=== PATIENT | female | born 1950 | race Caucasian/White ===

== ENCOUNTER 2016-11-05 20:40 | Emergency (ER) | payer MEDICARE ==
--- NOTE | 2016-11-05 22:40 | REPUSA ---
CT of the head Clinical history: Headache. Trauma. Technique: Multiple axial CT images were obtained through the head without administration of contrast . Findings: The ventricles and sulci are symmetric bilaterally. There is no evidence of acute hemorrhag e or infarct. There is no midline shift, mass effect, or extra-axial fluid collection. The osseous st ructures are unremarkable. There is a small air fluid level in the left maxillary sinus. The other vi sualized paranasal sinuses and mastoid air cells are clear. Impression: No acute intracranial hemorrhage or infarct. Small air fluid level in the left maxillary sinus.
--- NOTE | 2016-11-05 22:50 | REPUSA ---
CT of the cervical spine Clinical history: Pain. Trauma. Technique: Multiple axial CT images were obtained through the cervical spine without administration o f contrast. Coronal and sagittal 3-D reconstructed images were also obtained. Comparison: None. Findings: The cervical vertebral bodies are in satisfactory position. However, there is a 3 mm anterior spondyl olisthesis of C4 upon C5. No fractures or dislocations are demonstrated. The odontoid process is inta ct. Intervertebral disc spaces are moderately narrowed at C5/C6 and C/C7. Disc osteophyte complexes a nd disc bulges are noted at these levels. This results in borderline central canal stenosis measuring approximate 9 mm in AP diameter at each of these levels. There is also moderate bilateral neural for aminal narrowing. Moderate facet arthropathy with sclerosis and osteophytes are seen bilaterally. The re is no evidence of facet subluxation. The cervical cranial junction is intact. The surrounding soft tissues are within normal limits. Impression: 1. No acute fracture. 2. Moderately severe degenerative disc disease with disc osteophyte complexes and disc bulges at C5/C 6 and C6/C7. This results in borderline central canal stenosis and moderate bilateral neural foramina l narrowing at these levels. 3. Grade 1 anterior spondylolisthesis of C4 upon C5.
[2016-11-05] MEDS ORDERED: ADACEL/BOOSTRIX VACCINE (DIPHTH/PERTUSS/ACELL/TETANUS)0.5ML SYR (90715) As Ordered ONE (23:25)
--- NOTE | 2016-11-05 23:34 | EDDOCDS ---
Physician Documentation [facility] Name: Evy Robertson Age: 66 yrs Sex: Female : 1950 Arrival Date: 11/05/2016 Time: 20:40 Bed 9 Private MD: Christian Gutierrez M.D. Disposition: 11/05/16 23:15 Discharged to Home/Self Care. Impression: Laceration without foreign body of scalp. - Condition is Stable. - Medication Reconciliation, Local Pharmacy Hours form. - Follow up: Chritsian Gutierrez; When: 1 week; Reason: Staple/Suture removal. - Problem is new. - Symptoms have improved. Historical: - Allergies: PENICILLINS; - Home Meds: 1. levothyroxine 75 mcg Oral cap 1 cap once daily 2. simvastatin 80 mg Oral tab daily 3. fenofibrate 160 mg oral tab 1 tab once daily 4. Sertraline 50 mg daily 5. Vitamin B-12 1,000 mcg Oral tab daily 6. Stool Softener 100 mg oral cap 1 cap once daily 7. Vitamin C 1,000 mg Oral tab daily 8. Calcium + Vitamin D 600 mg calcium- 200 unit Oral tab daily 9. multivitamin Oral tab daily 10. Fish Oil 1,000 mg Oral cap daily - PMHx: Hypercholesterolemia; Hypothyroidism; - PSHx: hand surgery; knee surgery; ectopic ; Carpal Tunnel Repair- Right; - Social history: Smoking status: Patient states was never smoker of tobacco. No barriers to communication noted, The patient speaks fluent Kazakh. - Family history: Not pertinent. - : The pt / caregiver states he / she is not on anticoagulants. Home medication list is obtained from the patient. - Exposure Risk Screening:: None identified. Vital Signs: 11/05 20:42 BP 166 / 102; Pulse 99; Resp 18 S; Temp 98.3(O); Pulse Ox 99% on R/A; Weight 68.04 kg / gr2 150 lbs (R); Height 5 ft. 4 in. (162.56 cm) (R); Pain 3/10; 23:18 BP 132 / 76; Pulse 74; Resp 18; Temp 98.1(TE); Pulse Ox 98% on R/A; Pain 1/10; floyd 20:42 Body Mass Index 25.75 (68.04 kg, 162.56 cm) gr2 Procedures: 22:15 Laceration repair:. cs11 Laceration: 22:15 Wound Repair of 1.0cm ( 0.4in ) full thickness laceration to scalp. Distal cs11 neuro/vascular/tendon intact. Anesthesia: Local anesthetic administered with 2.0 mls of 1% lidocaine w/ Epi. Wound prep: Moderate cleansing with betadine by provider. Skin closed with 2 thin layer Prolene using Staple gun. Patient tolerated well. MDM: 21:54 CT Head Without Contrast Ordered. EDMS 21:55 CT Spine,Cervical W/o Contrast Ordered. EDMS 22:30 Financial registration complete. gb 22:42 [facility] Payment Agreement was scanned into [employer] and attached to record. gb 23:13 Tetanus- Diptheria-Acellular Pertussis 0.5 ml IM once; Routine booster 10-64yrs, >64 cs11 with child contact [employer] ordered. Administered Medications: 23:32 Drug: Tetanus- Diptheria-Acellular Pertussis 0.5 ml [diphth,pertussis(acel),tetanus 2.5 ko2 Lf unit-8 mcg-5 Lf/0.5mL IM syringe (0.5 mL)] {Home Health Aid: [employer]. Exp: 12/22/2018. Lot #: [id number]. } Route: IM; Site: right deltoid; Signatures: Dispatcher [employer] Tea Fernando RN RN mcp Barnhardt, Gloria, Reg Reg Devonte Gar, DO DO cs11 Keara Eagle RN RN ko2 The chart was reviewed and I authenticate all verbal orders and agree with the evaluation and treatment provided.Attachments: 22:42 [facility] Payment Agreement gb MTDD
--- NOTE | 2016-11-05 23:34 | EDDOCDS ---
Nurse's Notes [facility] Name: Evy Robertson Age: 66 yrs Sex: Female : 1950 Arrival Date: 11/05/2016 Time: 20:40 Bed 9 Private MD: Christian Gutierrez M.D. Diagnosis: Laceration without foreign body of scalp Presentation: 11/05 20:44 Presenting complaint: Patient states: Slipped and fell hitting back of head. Denies mcp being on any blood thinners. Adult Sepsis Screening: The patient does not have new or worsening altered mentation. Patient's respiratory rate is less than 22. Systolic blood pressure is greater than 100. Patient has a qSOFA score of 0- Negative Sepsis Screen. Suicide/Homicide risk assessment- the patient denies having any suicidal and/or homicidal ideations and does not present with any other emotional, behavioral or mental health complaints. Status: Patient is not a it service continuity supervisor or dependent. Transition of care: patient was not received from another setting of care. 20:44 Acuity: [facility] Level [facility] 20:44 Method Of Arrival: Walkin/Carried/[facility] Triage Assessment: 20:48 General: Appears uncomfortable, Behavior is cooperative. Pain: Location: back of head [facility] Pain currently is 4 out of 10 on a pain scale. Neurological: Level of Consciousness is awake, alert, Oriented to person, place, time, Moves all extremities. Gait is steady, Speech is normal. Respiratory: Airway is patent Respiratory effort is even, unlabored. Derm: Skin is pink, warm & dry. Musculoskeletal: Circulation, motion, and sensation intact. Injury Description: Laceration sustained to back of head is clean, 0.5 to 2.5 cm long, bleeding moderately. Historical: - Allergies: PENICILLINS; - Home Meds: 1. levothyroxine 75 mcg Oral cap 1 cap once daily 2. simvastatin 80 mg Oral tab daily 3. fenofibrate 160 mg oral tab 1 tab once daily 4. Sertraline 50 mg daily 5. Vitamin B-12 1,000 mcg Oral tab daily 6. Stool Softener 100 mg oral cap 1 cap once daily 7. Vitamin C 1,000 mg Oral tab daily 8. Calcium + Vitamin D 600 mg calcium- 200 unit Oral tab daily 9. multivitamin Oral tab daily 10. Fish Oil 1,000 mg Oral cap daily - PMHx: Hypercholesterolemia; Hypothyroidism; - PSHx: hand surgery; knee surgery; ectopic ; Carpal Tunnel Repair- Right; - Social history: Smoking status: Patient states was never smoker of tobacco. No barriers to communication noted, The patient speaks fluent Turkish. - Family history: Not pertinent. - : The pt / caregiver states he / she is not on anticoagulants. Home medication list is obtained from the patient. - Exposure Risk Screening:: None identified. Screenin:17 Screening information is obtained from the patient. Fall risk: No risks identified. ko2 Assistance ADL's: requires no assistance with activities of daily living. Abuse/DV Screen: The patient / caregiver reports he/she is: There is an injury present, The injury is consistent with the stated history. Nutritional screening: No deficits noted. Advance Directives: Currently, there is no health care proxy. There is no active DNR order. There is no living will. There is no Power of Copyright Clerk. home support is adequate. Assessment: 22:00 General: Appears in no apparent distress, Behavior is appropriate for age, cooperative. ko2 Pain: Location: back of head Pain currently is 4 out of 10 on a pain scale. Neurological: Level of Consciousness is awake, alert. Respiratory: Airway is patent Respiratory effort is even, unlabored. Derm: laceration to back of head. bleeding slightly. 22:00 Musculoskeletal: Range of motion intact in all extremities. ko2 23:00 General: Appears in no apparent distress, Behavior is appropriate for age, cooperative. ko2 Pain: Location: back of head. Neurological: Level of Consciousness is awake, alert. Respiratory: Airway is patent Respiratory effort is even, unlabored. Derm: Bleeding stopped. [place] in place. Vital Signs: 20:42 BP 166 / 102; Pulse 99; Resp 18 S; Temp 98.3(O); Pulse Ox 99% on R/A; Weight 68.04 kg gr2 (R); Height 5 ft. 4 in. (162.56 cm) (R); Pain 3/10; 23:18 BP 132 / 76; Pulse 74; Resp 18; Temp 98.1(TE); Pulse Ox 98% on R/A; Pain 1/10; floyd 20:42 Body Mass Index 25.75 (68.04 kg, 162.56 cm) gr2 Vitals: 20:42 Log In Time: November 05, 2016 at 20:42. gr2 ED Course: 20:42 Patient visited by Edel Sanchez. gr2 20:42 Christian Gutierrez is Private Physician. gr2 20:42 Patient moved to Waiting gr2 20:43 Patient visited by Edel Sanchez. gr2 20:43 Patient moved to Pre RCE gr2 20:45 Triage Initiated mcp 20:51 Patient visited by Tea Delgadillo RN. mcp 21:51 Keara Eagle RN is Primary Nurse. cz 21:51 Patient moved to 9 cz 21:52 Devonte Elizabeth DO is Attending Physician. cs11 21:52 Patient visited by Devonte Elizabeth DO. cs11 22:18 The patient / caregiver is instructed regarding the plan of care and ED course. ko2 22:42 [facility] Payment Agreement was scanned into [employer] and attached to record. gb 22:47 Patient visited by Keara Eagle RN. ko2 22:59 CT Head Without Contrast Returned. EDMS 22:59 CT Spine,Cervical W/o Contrast Returned. EDMS 23:14 Christian Gutierrez is Referral Physician. cs11 23:18 Patient visited by Emily Torrez PCA. floyd 23:33 No IV's were initiated during this patient's visit. No procedures done that require ko2 assistance. Administered Medications: 23:32 Drug: Tetanus- Diptheria-Acellular Pertussis 0.5 ml [diphth,pertussis(acel),tetanus 2.5 ko2 Lf unit-8 mcg-5 Lf/0.5mL IM syringe (0.5 mL)] {Director Employee Communications: [employer]. Exp: 12/22/2018. Lot #: [id number]. } Route: IM; Site: right deltoid; Order Results: Radiology Order: CT Head Without Contrast Test: CT Head Without Contrast REASON FOR EXAMINATION: Trauma; ; CT of the head; Clinical history: Headache. Trauma.; Technique: Multiple axial CT images were obtained through the head without administration of contrast; .; Findings: The ventricles and sulci are symmetric bilaterally. There is no evidence of acute hemorrhag; e or infarct. There is no midline shift, mass effect, or extra-axial fluid collection. The osseous st; ructures are unremarkable. There is a small air fluid level in the left maxillary sinus. The other vi; sualized paranasal sinuses and mastoid air cells are clear.; Impression: No acute intracranial hemorrhage or infarct. Small air fluid level in the left maxillary; sinus.; ; Radiology Order: CT Spine,Cervical W/o Contrast Test: CT Spine,Cervical W/o Contrast REASON FOR EXAMINATION: Trauma; ; CT of the cervical spine; Clinical history: Pain. Trauma.; Technique: Multiple axial CT images were obtained through the cervical spine without administration o; f contrast. Coronal and sagittal 3-D reconstructed images were also obtained.; Comparison: None.; Findings:; The cervical vertebral bodies are in satisfactory position. However, there is a 3 mm anterior spondyl; olisthesis of C4 upon C5. No fractures or dislocations are demonstrated. The odontoid process is inta; ct. Intervertebral disc spaces are moderately narrowed at C5/C6 and C/C7. Disc osteophyte complexes a; nd disc bulges are noted at these levels. This results in borderline central canal stenosis measuring; approximate 9 mm in AP diameter at each of these levels. There is also moderate bilateral neural for; aminal narrowing. Moderate facet arthropathy with sclerosis and osteophytes are seen bilaterally. The; re is no evidence of facet subluxation. The cervical cranial junction is intact. The surrounding soft; tissues are within normal limits.; Impression:; 1. No acute fracture.; 2. Moderately severe degenerative disc disease with disc osteophyte complexes and disc bulges at C5/C; 6 and C6/C7. This results in borderline central canal stenosis and moderate bilateral neural foramina; l narrowing at these levels.; 3. Grade 1 anterior spondylolisthesis of C4 upon C5.; ; Outcome: 23:15 Discharge ordered by Provider. cs11 23:33 Discharge Assessment: Patient awake, alert and oriented x 3. No cognitive and/or ko2 functional deficits noted. Patient verbalized understanding of disposition instructions. patient administered narcotics - no. The following High Risk Discharge criteria are identified: None. Condition: stable. Discharge instructions given to patient, Instructed on discharge instructions, follow up and referral plans. Demonstrated understanding of instructions, Pt was receptive of discharge instructions/ teaching. CT Study completed. Property sent home with patient. 23:33 Patient left the ED. ko2 Signatures: Dispatcher [employer] Tea Fernando, RN RN Alcon Puentes RN RN cz Barnhardt, Gloria, Reg Reg gb Emily Torrez, [employer]ACINTA COMMERCIAL DIVER Devonte Tran, DO cs11 Edel Sanchez gr2 Keara EagleRN RN ko2 MTDD
--- NOTE | 2016-11-08 00:34 | EDDOCDS ---
Physician Documentation [facility] Name: Evy Robertson Age: 66 yrs Sex: Female : 1950 Arrival Date: 11/05/2016 Time: 20:40 Bed 9 Private MD: Christian Gutierrez M.D. Disposition: 11/05/16 23:15 Discharged to Home/Self Care. Impression: Laceration without foreign body of scalp. - Condition is Stable. - Medication Reconciliation, Local Pharmacy Hours form. - Follow up: Christian Gutierrez; When: 1 week; Reason: Staple/Suture removal. - Problem is new. - Symptoms have improved. Historical: - Allergies: PENICILLINS; - Home Meds: 1. levothyroxine 75 mcg Oral cap 1 cap once daily 2. simvastatin 80 mg Oral tab daily 3. fenofibrate 160 mg oral tab 1 tab once daily 4. Sertraline 50 mg daily 5. Vitamin B-12 1,000 mcg Oral tab daily 6. Stool Softener 100 mg oral cap 1 cap once daily 7. Vitamin C 1,000 mg Oral tab daily 8. Calcium + Vitamin D 600 mg calcium- 200 unit Oral tab daily 9. multivitamin Oral tab daily 10. Fish Oil 1,000 mg Oral cap daily - PMHx: Hypercholesterolemia; Hypothyroidism; - PSHx: hand surgery; knee surgery; ectopic ; Carpal Tunnel Repair- Right; - Social history: Smoking status: Patient states was never smoker of tobacco. No barriers to communication noted, The patient speaks fluent Pashto. - Family history: Not pertinent. - : The pt / caregiver states he / she is not on anticoagulants. Home medication list is obtained from the patient. - Exposure Risk Screening:: None identified. Vital Signs: 11/05 20:42 BP 166 / 102; Pulse 99; Resp 18 S; Temp 98.3(O); Pulse Ox 99% on R/A; Weight 68.04 kg / gr2 150 lbs (R); Height 5 ft. 4 in. (162.56 cm) (R); Pain 3/10; 23:18 BP 132 / 76; Pulse 74; Resp 18; Temp 98.1(TE); Pulse Ox 98% on R/A; Pain 1/10; floyd 20:42 Body Mass Index 25.75 (68.04 kg, 162.56 cm) gr2 Procedures: 22:15 Laceration repair:. cs11 Laceration: 22:15 Wound Repair of 1.0cm ( 0.4in ) full thickness laceration to scalp. Distal cs11 neuro/vascular/tendon intact. Anesthesia: Local anesthetic administered with 2.0 mls of 1% lidocaine w/ Epi. Wound prep: Moderate cleansing with betadine by provider. Skin closed with 2 thin layer Prolene using Staple gun. Patient tolerated well. MDM: 21:54 CT Head Without Contrast Ordered. EDMS 21:55 CT Spine,Cervical W/o Contrast Ordered. EDMS 22:30 Financial registration complete. gb 22:42 [facility] Payment Agreement was scanned into [employer] and attached to record. gb 23:13 Tetanus- Diptheria-Acellular Pertussis 0.5 ml IM once; Routine booster 10-64yrs, >64 cs11 with child contact [employer] ordered. 11/06 12:35 T-Sheet-- Draft Copy was scanned into [employer] and attached to record. gb Administered Medications: 11/05 23:32 Drug: Tetanus- Diptheria-Acellular Pertussis 0.5 ml [diphth,pertussis(acel),tetanus 2.5 ko2 Lf unit-8 mcg-5 Lf/0.5mL IM syringe (0.5 mL)] {Supervisor Paste Mixing: [employer]. Exp: 12/22/2018. Lot #: [id number]. } Route: IM; Site: right deltoid; Signatures: Dispatcher [employer] Tea Fernando RN RN mcp Barnhardt, Gloria, Reg Reg Devonte Elizabeth DO DO cs11 Keara Eagle RN RN ko2 The chart was reviewed and I authenticate all verbal orders and agree with the evaluation and treatment provided.Attachments: 22:42 [facility] Payment Agreement gb 11/06 12:35 T-Sheet-- Draft Copy gb Chart Complete MTDD
--- NOTE | 2016-11-08 00:34 | EDDOCDS ---
Physician Documentation [facility] [place] Name: Evy Robertson Age: 66 yrs Sex: Female : 1950 Arrival Date: 11/05/2016 Time: 20:40 Bed 9 Private MD: Christian Gutierrez M.D. Disposition: 11/05/16 23:15 Discharged to Home/Self Care. Impression: Laceration without foreign body of scalp. - Condition is Stable. - Medication Reconciliation, Local Pharmacy Hours form. - Follow up: Christian Gutierrez; When: 1 week; Reason: Staple/Suture removal. - Problem is new. - Symptoms have improved. Historical: - Allergies: PENICILLINS; - Home Meds: 1. levothyroxine 75 mcg Oral cap 1 cap once daily 2. simvastatin 80 mg Oral tab daily 3. fenofibrate 160 mg oral tab 1 tab once daily 4. Sertraline 50 mg daily 5. Vitamin B-12 1,000 mcg Oral tab daily 6. Stool Softener 100 mg oral cap 1 cap once daily 7. Vitamin C 1,000 mg Oral tab daily 8. Calcium + Vitamin D 600 mg calcium- 200 unit Oral tab daily 9. multivitamin Oral tab daily 10. Fish Oil 1,000 mg Oral cap daily - PMHx: Hypercholesterolemia; Hypothyroidism; - PSHx: hand surgery; knee surgery; ectopic ; Carpal Tunnel Repair- Right; - Social history: Smoking status: Patient states was never smoker of tobacco. No barriers to communication noted, The patient speaks fluent Polish. - Family history: Not pertinent. - : The pt / caregiver states he / she is not on anticoagulants. Home medication list is obtained from the patient. - Exposure Risk Screening:: None identified. Vital Signs: 11/05 20:42 BP 166 / 102; Pulse 99; Resp 18 S; Temp 98.3(O); Pulse Ox 99% on R/A; Weight 68.04 kg / gr2 150 lbs (R); Height 5 ft. 4 in. (162.56 cm) (R); Pain 3/10; 23:18 BP 132 / 76; Pulse 74; Resp 18; Temp 98.1(TE); Pulse Ox 98% on R/A; Pain 1/10; floyd 20:42 Body Mass Index 25.75 (68.04 kg, 162.56 cm) gr2 Procedures: 22:15 Laceration repair:. cs11 Laceration: 22:15 Wound Repair of 1.0cm ( 0.4in ) full thickness laceration to scalp. Distal cs11 neuro/vascular/tendon intact. Anesthesia: Local anesthetic administered with 2.0 mls of 1% lidocaine w/ Epi. Wound prep: Moderate cleansing with betadine by provider. Skin closed with 2 thin layer Prolene using Staple gun. Patient tolerated well. MDM: 21:54 CT Head Without Contrast Ordered. EDMS 21:55 CT Spine,Cervical W/o Contrast Ordered. EDMS 22:30 Financial registration complete. gb 22:42 [facility] Payment Agreement was scanned into [employer] and attached to record. gb 23:13 Tetanus- Diptheria-Acellular Pertussis 0.5 ml IM once; Routine booster 10-64yrs, >64 cs11 with child contact [employer] ordered. 11/06 12:35 T-Sheet-- Draft Copy was scanned into [employer] and attached to record. gb Administered Medications: 11/05 23:32 Drug: Tetanus- Diptheria-Acellular Pertussis 0.5 ml [diphth,pertussis(acel),tetanus 2.5 ko2 Lf unit-8 mcg-5 Lf/0.5mL IM syringe (0.5 mL)] {Wink Cutter Operator: [employer]. Exp: 12/22/2018. Lot #: [id number]. } Route: IM; Site: right deltoid; Signatures: Dispatcher [employer] Tea Fernando RN RN mcp Barnhardt, Gloria, Reg Reg Devonte Elizabeth DO DO cs11 Keara Eagle RN RN ko2 The chart was reviewed and I authenticate all verbal orders and agree with the evaluation and treatment provided.Attachments: 22:42 [facility] Payment Agreement gb 11/06 12:35 T-Sheet-- Draft Copy gb Chart Complete MTDD
--- NOTE | 2016-11-08 00:34 | EDDOCDS ---
[facility] Name: Evy Robertson Age: 66 yrs Sex: Female : 1950 Arrival Date: 11/05/2016 Time: 20:40 Bed 9 Private MD: Christian Gutierrez M.D. Diagnosis: Laceration without foreign body of scalp Presentation: 11/05 20:44 Presenting complaint: Patient states: Slipped and fell hitting back of head. Denies mcp being on any blood thinners. Adult Sepsis Screening: The patient does not have new or worsening altered mentation. Patient's respiratory rate is less than 22. Systolic blood pressure is greater than 100. Patient has a qSOFA score of 0- Negative Sepsis Screen. Suicide/Homicide risk assessment- the patient denies having any suicidal and/or homicidal ideations and does not present with any other emotional, behavioral or mental health complaints. Status: Patient is not a manager of environmental services or dependent. Transition of care: patient was not received from another setting of care. 20:44 Acuity: WINNIE Level 4 [facility] 20:44 Method Of Arrival: Walkin/Carried/Asstd [facility] Triage Assessment: 20:48 General: Appears uncomfortable, Behavior is cooperative. Pain: Location: back of head [facility] Pain currently is 4 out of 10 on a pain scale. Neurological: Level of Consciousness is awake, alert, Oriented to person, place, time, Moves all extremities. Gait is steady, Speech is normal. Respiratory: Airway is patent Respiratory effort is even, unlabored. Derm: Skin is pink, warm & dry. Musculoskeletal: Circulation, motion, and sensation intact. Injury Description: Laceration sustained to back of head is clean, 0.5 to 2.5 cm long, bleeding moderately. Historical: - Allergies: PENICILLINS; - Home Meds: 1. levothyroxine 75 mcg Oral cap 1 cap once daily 2. simvastatin 80 mg Oral tab daily 3. fenofibrate 160 mg oral tab 1 tab once daily 4. Sertraline 50 mg daily 5. Vitamin B-12 1,000 mcg Oral tab daily 6. Stool Softener 100 mg oral cap 1 cap once daily 7. Vitamin C 1,000 mg Oral tab daily 8. Calcium + Vitamin D 600 mg calcium- 200 unit Oral tab daily 9. multivitamin Oral tab daily 10. Fish Oil 1,000 mg Oral cap daily - PMHx: Hypercholesterolemia; Hypothyroidism; - PSHx: hand surgery; knee surgery; ectopic ; Carpal Tunnel Repair- Right; - Social history: Smoking status: Patient states was never smoker of tobacco. No barriers to communication noted, The patient speaks fluent Indonesian. - Family history: Not pertinent. - : The pt / caregiver states he / she is not on anticoagulants. Home medication list is obtained from the patient. - Exposure Risk Screening:: None identified. Screenin:17 Screening information is obtained from the patient. Fall risk: No risks identified. ko2 Assistance ADL's: requires no assistance with activities of daily living. Abuse/DV Screen: The patient / caregiver reports he/she is: There is an injury present, The injury is consistent with the stated history. Nutritional screening: No deficits noted. Advance Directives: Currently, there is no health care proxy. There is no active DNR order. There is no living will. There is no Power of Sound Effects Technician. home support is adequate. Assessment: 22:00 General: Appears in no apparent distress, Behavior is appropriate for age, cooperative. ko2 Pain: Location: back of head Pain currently is 4 out of 10 on a pain scale. Neurological: Level of Consciousness is awake, alert. Respiratory: Airway is patent Respiratory effort is even, unlabored. Derm: laceration to back of head. bleeding slightly. 22:00 Musculoskeletal: Range of motion intact in all extremities. ko2 23:00 General: Appears in no apparent distress, Behavior is appropriate for age, cooperative. ko2 Pain: Location: back of head. Neurological: Level of Consciousness is awake, alert. Respiratory: Airway is patent Respiratory effort is even, unlabored. Derm: Bleeding stopped. [place] in place. Vital Signs: 20:42 BP 166 / 102; Pulse 99; Resp 18 S; Temp 98.3(O); Pulse Ox 99% on R/A; Weight 68.04 kg gr2 (R); Height 5 ft. 4 in. (162.56 cm) (R); Pain 3/10; 23:18 BP 132 / 76; Pulse 74; Resp 18; Temp 98.1(TE); Pulse Ox 98% on R/A; Pain 1/10; floyd 20:42 Body Mass Index 25.75 (68.04 kg, 162.56 cm) gr2 Vitals: 20:42 Log In Time: November 05, 2016 at 20:42. gr2 ED Course: 20:42 Patient visited by Edel Sanchez. gr2 20:42 Christian Gutierrez is Private Physician. gr2 20:42 Patient moved to Waiting gr2 20:43 Patient visited by Edel Sanchez. gr2 20:43 Patient moved to Pre RCE gr2 20:45 Triage Initiated mcp 20:51 Patient visited by Tea Delgadillo RN. mcp 21:51 Keara Eagle,NAGI is Primary Nurse. cz 21:51 Patient moved to 9 cz 21:52 Devonte Elizabeth DO is Attending Physician. cs11 21:52 Patient visited by Devonte Elizabeth DO. cs11 22:18 The patient / caregiver is instructed regarding the plan of care and ED course. ko2 22:42 [facility] Payment Agreement was scanned into [employer] and attached to record. gb 22:47 Patient visited by Keara Eagle RN. ko2 22:59 CT Head Without Contrast Returned. EDMS 22:59 CT Spine,Cervical W/o Contrast Returned. EDMS 23:14 Christian Gutierrez is Referral Physician. cs11 23:18 Patient visited by Emily Torrez PCA. floyd 23:33 No IV's were initiated during this patient's visit. No procedures done that require ko2 assistance. 11/06 12:35 T-Sheet-- Draft Copy was scanned into [employer] and attached to record. gb Administered Medications: 11/05 23:32 Drug: Tetanus- Diptheria-Acellular Pertussis 0.5 ml [diphth,pertussis(acel),tetanus 2.5 ko2 Lf unit-8 mcg-5 Lf/0.5mL IM syringe (0.5 mL)] {Newspaper Delivery Driver: [employer]. Exp: 12/22/2018. Lot #: [id number]. } Route: IM; Site: right deltoid; Order Results: Radiology Order: CT Head Without Contrast Test: CT Head Without Contrast REASON FOR EXAMINATION: Trauma; ; CT of the head; Clinical history: Headache. Trauma.; Technique: Multiple axial CT images were obtained through the head without administration of contrast; .; Findings: The ventricles and sulci are symmetric bilaterally. There is no evidence of acute hemorrhag; e or infarct. There is no midline shift, mass effect, or extra-axial fluid collection. The osseous st; ructures are unremarkable. There is a small air fluid level in the left maxillary sinus. The other vi; sualized paranasal sinuses and mastoid air cells are clear.; Impression: No acute intracranial hemorrhage or infarct. Small air fluid level in the left maxillary; sinus.; ; Radiology Order: CT Spine,Cervical W/o Contrast Test: CT Spine,Cervical W/o Contrast REASON FOR EXAMINATION: Trauma; ; CT of the cervical spine; Clinical history: Pain. Trauma.; Technique: Multiple axial CT images were obtained through the cervical spine without administration o; f contrast. Coronal and sagittal 3-D reconstructed images were also obtained.; Comparison: None.; Findings:; The cervical vertebral bodies are in satisfactory position. However, there is a 3 mm anterior spondyl; olisthesis of C4 upon C5. No fractures or dislocations are demonstrated. The odontoid process is inta; ct. Intervertebral disc spaces are moderately narrowed at C5/C6 and C/C7. Disc osteophyte complexes a; nd disc bulges are noted at these levels. This results in borderline central canal stenosis measuring; approximate 9 mm in AP diameter at each of these levels. There is also moderate bilateral neural for; aminal narrowing. Moderate facet arthropathy with sclerosis and osteophytes are seen bilaterally. The; re is no evidence of facet subluxation. The cervical cranial junction is intact. The surrounding soft; tissues are within normal limits.; Impression:; 1. No acute fracture.; 2. Moderately severe degenerative disc disease with disc osteophyte complexes and disc bulges at C5/C; 6 and C6/C7. This results in borderline central canal stenosis and moderate bilateral neural foramina; l narrowing at these levels.; 3. Grade 1 anterior spondylolisthesis of C4 upon C5.; ; Outcome: 23:15 Discharge ordered by Provider. cs11 23:33 Discharge Assessment: Patient awake, alert and oriented x 3. No cognitive and/or ko2 functional deficits noted. Patient verbalized understanding of disposition instructions. patient administered narcotics - no. The following High Risk Discharge criteria are identified: None. Condition: stable. Discharge instructions given to patient, Instructed on discharge instructions, follow up and referral plans. Demonstrated understanding of instructions, Pt was receptive of discharge instructions/ teaching. CT Study completed. Property sent home with patient. 23:33 Patient left the ED. ko2 Signatures: Dispatcher [employer] EDTea Young, RN RN Alcon Puentes, RN RN Ceci Benjamin, Reg Reg gb Lore, Emily, ECHO VASCULAR TECHNOLOGIST ECHO VASCULAR TECHNOLOGIST Devonte Tran, DO cs11 Edel Sanchez gr2 Keara Eagle RN RN ko2 Chart Complete MTDD
--- NOTE | 2016-11-08 17:49 | EDDOCDS ---
Physician Documentation [facility] Name: Evy Robertson Age: 66 yrs Sex: Female : 1950 Arrival Date: 11/05/2016 Time: 20:40 Bed 9 Private MD: Christian Gutierrez M.D. Disposition: 11/05/16 23:15 Discharged to Home/Self Care. Impression: Laceration without foreign body of scalp. - Condition is Stable. - Medication Reconciliation, Local Pharmacy Hours form. - Follow up: Christian Gutierrez; When: 1 week; Reason: Staple/Suture removal. - Problem is new. - Symptoms have improved. Historical: - Allergies: PENICILLINS; - Home Meds: 1. levothyroxine 75 mcg Oral cap 1 cap once daily 2. simvastatin 80 mg Oral tab daily 3. fenofibrate 160 mg oral tab 1 tab once daily 4. Sertraline 50 mg daily 5. Vitamin B-12 1,000 mcg Oral tab daily 6. Stool Softener 100 mg oral cap 1 cap once daily 7. Vitamin C 1,000 mg Oral tab daily 8. Calcium + Vitamin D 600 mg calcium- 200 unit Oral tab daily 9. multivitamin Oral tab daily 10. Fish Oil 1,000 mg Oral cap daily - PMHx: Hypercholesterolemia; Hypothyroidism; - PSHx: hand surgery; knee surgery; ectopic ; Carpal Tunnel Repair- Right; - Social history: Smoking status: Patient states was never smoker of tobacco. No barriers to communication noted, The patient speaks fluent Malay. - Family history: Not pertinent. - : The pt / caregiver states he / she is not on anticoagulants. Home medication list is obtained from the patient. - Exposure Risk Screening:: None identified. Vital Signs: 11/05 20:42 BP 166 / 102; Pulse 99; Resp 18 S; Temp 98.3(O); Pulse Ox 99% on R/A; Weight 68.04 kg / gr2 150 lbs (R); Height 5 ft. 4 in. (162.56 cm) (R); Pain 3/10; 23:18 BP 132 / 76; Pulse 74; Resp 18; Temp 98.1(TE); Pulse Ox 98% on R/A; Pain 1/10; floyd 20:42 Body Mass Index 25.75 (68.04 kg, 162.56 cm) gr2 Procedures: 22:15 Laceration repair:. cs11 Laceration: 22:15 Wound Repair of 1.0cm ( 0.4in ) full thickness laceration to scalp. Distal cs11 neuro/vascular/tendon intact. Anesthesia: Local anesthetic administered with 2.0 mls of 1% lidocaine w/ Epi. Wound prep: Moderate cleansing with betadine by provider. Skin closed with 2 thin layer Prolene using Staple gun. Patient tolerated well. MDM: 21:54 CT Head Without Contrast Ordered. EDMS 21:55 CT Spine,Cervical W/o Contrast Ordered. EDMS 22:30 Financial registration complete. gb 22:42 [facility] Payment Agreement was scanned into [employer] and attached to record. gb 23:13 Tetanus- Diptheria-Acellular Pertussis 0.5 ml IM once; Routine booster 10-64yrs, >64 cs11 with child contact [place] ordered. 11/06 12:35 T-Sheet-- Draft Copy was scanned into [employer] and attached to record. gb Administered Medications: 11/05 23:32 Drug: Tetanus- Diptheria-Acellular Pertussis 0.5 ml [diphth,pertussis(acel),tetanus 2.5 ko2 Lf unit-8 mcg-5 Lf/0.5mL IM syringe (0.5 mL)] {Band Maker: [employer]. Exp: 12/22/2018. Lot #: [id number]. } Route: IM; Site: right deltoid; Addendum: 11/08/2016 17:48 Radiology Callback: Radiology results faxed to primary care physician/provider. dr prince gutierrez faxed formal repiort of ct c spine for fu mlg. Signatures: Dispatcher [employer] EDDE Rosa Lee MD MD ml Peters, Mary RN RN Ceci Arroyo, Reg Reg Devonte Gar DO DO cs11 Keara Eagle RN RN ko2 The chart was reviewed and I authenticate all verbal orders and agree with the evaluation and treatment provided.Attachments: 11/05 22:42 [facility] Payment Agreement gb 11/06 12:35 T-Sheet-- Draft Copy gb MTDD
--- NOTE | 2016-11-08 17:49 | EDDOCDS ---
Nurse's Notes [facility] Name: Evy Robertson Age: 66 yrs Sex: Female : 1950 Arrival Date: 11/05/2016 Time: 20:40 Bed 9 Private MD: Christian Gutierrez M.D. Diagnosis: Laceration without foreign body of scalp Presentation: 11/05 20:44 Presenting complaint: Patient states: Slipped and fell hitting back of head. Denies mcp being on any blood thinners. Adult Sepsis Screening: The patient does not have new or worsening altered mentation. Patient's respiratory rate is less than 22. Systolic blood pressure is greater than 100. Patient has a qSOFA score of 0- Negative Sepsis Screen. Suicide/Homicide risk assessment- the patient denies having any suicidal and/or homicidal ideations and does not present with any other emotional, behavioral or mental health complaints. Status: Patient is not a secret service agent or dependent. Transition of care: patient was not received from another setting of care. 20:44 Acuity: WINNIE Level 4 [facility] 20:44 Method Of Arrival: Walkin/Carried/Asstd [facility] Triage Assessment: 20:48 General: Appears uncomfortable, Behavior is cooperative. Pain: Location: back of head [facility] Pain currently is 4 out of 10 on a pain scale. Neurological: Level of Consciousness is awake, alert, Oriented to person, place, time, Moves all extremities. Gait is steady, Speech is normal. Respiratory: Airway is patent Respiratory effort is even, unlabored. Derm: Skin is pink, warm & dry. Musculoskeletal: Circulation, motion, and sensation intact. Injury Description: Laceration sustained to back of head is clean, 0.5 to 2.5 cm long, bleeding moderately. Historical: - Allergies: PENICILLINS; - Home Meds: 1. levothyroxine 75 mcg Oral cap 1 cap once daily 2. simvastatin 80 mg Oral tab daily 3. fenofibrate 160 mg oral tab 1 tab once daily 4. Sertraline 50 mg daily 5. Vitamin B-12 1,000 mcg Oral tab daily 6. Stool Softener 100 mg oral cap 1 cap once daily 7. Vitamin C 1,000 mg Oral tab daily 8. Calcium + Vitamin D 600 mg calcium- 200 unit Oral tab daily 9. multivitamin Oral tab daily 10. Fish Oil 1,000 mg Oral cap daily - PMHx: Hypercholesterolemia; Hypothyroidism; - PSHx: hand surgery; knee surgery; ectopic ; Carpal Tunnel Repair- Right; - Social history: Smoking status: Patient states was never smoker of tobacco. No barriers to communication noted, The patient speaks fluent Georgian. - Family history: Not pertinent. - : The pt / caregiver states he / she is not on anticoagulants. Home medication list is obtained from the patient. - Exposure Risk Screening:: None identified. Screenin:17 Screening information is obtained from the patient. Fall risk: No risks identified. ko2 Assistance ADL's: requires no assistance with activities of daily living. Abuse/DV Screen: The patient / caregiver reports he/she is: There is an injury present, The injury is consistent with the stated history. Nutritional screening: No deficits noted. Advance Directives: Currently, there is no health care proxy. There is no active DNR order. There is no living will. There is no Power of Ios Programmer. home support is adequate. Assessment: 22:00 General: Appears in no apparent distress, Behavior is appropriate for age, cooperative. ko2 Pain: Location: back of head Pain currently is 4 out of 10 on a pain scale. Neurological: Level of Consciousness is awake, alert. Respiratory: Airway is patent Respiratory effort is even, unlabored. Derm: laceration to back of head. bleeding slightly. 22:00 Musculoskeletal: Range of motion intact in all extremities. ko2 23:00 General: Appears in no apparent distress, Behavior is appropriate for age, cooperative. ko2 Pain: Location: back of head. Neurological: Level of Consciousness is awake, alert. Respiratory: Airway is patent Respiratory effort is even, unlabored. Derm: Bleeding stopped. [place] in place. Vital Signs: 20:42 BP 166 / 102; Pulse 99; Resp 18 S; Temp 98.3(O); Pulse Ox 99% on R/A; Weight 68.04 kg gr2 (R); Height 5 ft. 4 in. (162.56 cm) (R); Pain 3/10; 23:18 BP 132 / 76; Pulse 74; Resp 18; Temp 98.1(TE); Pulse Ox 98% on R/A; Pain 1/10; floyd 20:42 Body Mass Index 25.75 (68.04 kg, 162.56 cm) gr2 Vitals: 20:42 Log In Time: November 05, 2016 at 20:42. gr2 ED Course: 20:42 Patient visited by Edel Sanchez. gr2 20:42 Christian Gutierrez is Private Physician. gr2 20:42 Patient moved to Waiting gr2 20:43 Patient visited by Edel Sanchez. gr2 20:43 Patient moved to Pre RCE gr2 20:45 Triage Initiated mcp 20:51 Patient visited by Tea Delgadillo RN. mcp 21:51 Keara Eagle,NAGI is Primary Nurse. cz 21:51 Patient moved to 9 cz 21:52 Devonte Elizabeth DO is Attending Physician. cs11 21:52 Patient visited by Devonte Elizabeth DO. cs11 22:18 The patient / caregiver is instructed regarding the plan of care and ED course. ko2 22:42 [facility] Payment Agreement was scanned into [employer] and attached to record. gb 22:47 Patient visited by Keara Eagle RN. ko2 22:59 CT Head Without Contrast Returned. EDMS 22:59 CT Spine,Cervical W/o Contrast Returned. EDMS 23:14 Christian Gutierrez is Referral Physician. cs11 23:18 Patient visited by Emily Torrez PCA. floyd 23:33 No IV's were initiated during this patient's visit. No procedures done that require ko2 assistance. 11/06 12:35 T-Sheet-- Draft Copy was scanned into [employer] and attached to record. gb Administered Medications: 11/05 23:32 Drug: Tetanus- Diptheria-Acellular Pertussis 0.5 ml [diphth,pertussis(acel),tetanus 2.5 ko2 Lf unit-8 mcg-5 Lf/0.5mL IM syringe (0.5 mL)] {Library Consultant: [email or web address]. Exp: 12/22/2018. Lot #: [id number]. } Route: IM; Site: right deltoid; Order Results: Radiology Order: CT Head Without Contrast Test: CT Head Without Contrast REASON FOR EXAMINATION: Trauma; ; CT of the head; Clinical history: Headache. Trauma.; Technique: Multiple axial CT images were obtained through the head without administration of contrast; .; Findings: The ventricles and sulci are symmetric bilaterally. There is no evidence of acute hemorrhag; e or infarct. There is no midline shift, mass effect, or extra-axial fluid collection. The osseous st; ructures are unremarkable. There is a small air fluid level in the left maxillary sinus. The other vi; sualized paranasal sinuses and mastoid air cells are clear.; Impression: No acute intracranial hemorrhage or infarct. Small air fluid level in the left maxillary; sinus.; ; Radiology Order: CT Spine,Cervical W/o Contrast Test: CT Spine,Cervical W/o Contrast REASON FOR EXAMINATION: Trauma; ; CT of the cervical spine; Clinical history: Pain. Trauma.; Technique: Multiple axial CT images were obtained through the cervical spine without administration o; f contrast. Coronal and sagittal 3-D reconstructed images were also obtained.; Comparison: None.; Findings:; The cervical vertebral bodies are in satisfactory position. However, there is a 3 mm anterior spondyl; olisthesis of C4 upon C5. No fractures or dislocations are demonstrated. The odontoid process is inta; ct. Intervertebral disc spaces are moderately narrowed at C5/C6 and C/C7. Disc osteophyte complexes a; nd disc bulges are noted at these levels. This results in borderline central canal stenosis measuring; approximate 9 mm in AP diameter at each of these levels. There is also moderate bilateral neural for; aminal narrowing. Moderate facet arthropathy with sclerosis and osteophytes are seen bilaterally. The; re is no evidence of facet subluxation. The cervical cranial junction is intact. The surrounding soft; tissues are within normal limits.; Impression:; 1. No acute fracture.; 2. Moderately severe degenerative disc disease with disc osteophyte complexes and disc bulges at C5/C; 6 and C6/C7. This results in borderline central canal stenosis and moderate bilateral neural foramina; l narrowing at these levels.; 3. Grade 1 anterior spondylolisthesis of C4 upon C5.; ; Outcome: 23:15 Discharge ordered by Provider. cs11 23:33 Discharge Assessment: Patient awake, alert and oriented x 3. No cognitive and/or ko2 functional deficits noted. Patient verbalized understanding of disposition instructions. patient administered narcotics - no. The following High Risk Discharge criteria are identified: None. Condition: stable. Discharge instructions given to patient, Instructed on discharge instructions, follow up and referral plans. Demonstrated understanding of instructions, Pt was receptive of discharge instructions/ teaching. CT Study completed. Property sent home with patient. 23:33 Patient left the ED. ko2 Signatures: Dispatcher [employer] EDTea Young, RN RN Alcon Puentes, NAGI RN Ceci Benjamin, Reg Reg gb Lore, Emily, LITIGATION LEGAL SECRETARY LITIGATION LEGAL SECRETARY Devonte Tran, DO cs11 Edel Sanchez gr2 Keara Eagle RN RN ko2 MTDD
--- NOTE | 2016-11-08 17:49 | EDDOCDS ---
Physician Documentation [facility] Name: Evy Robertson Age: 66 yrs Sex: Female : 1950 Arrival Date: 11/05/2016 Time: 20:40 Bed 9 Private MD: Christian Gutierrez M.D. Disposition: 11/05/16 23:15 Discharged to Home/Self Care. Impression: Laceration without foreign body of scalp. - Condition is Stable. - Medication Reconciliation, Local Pharmacy Hours form. - Follow up: Christian Gutierrez; When: 1 week; Reason: Staple/Suture removal. - Problem is new. - Symptoms have improved. Historical: - Allergies: PENICILLINS; - Home Meds: 1. levothyroxine 75 mcg Oral cap 1 cap once daily 2. simvastatin 80 mg Oral tab daily 3. fenofibrate 160 mg oral tab 1 tab once daily 4. Sertraline 50 mg daily 5. Vitamin B-12 1,000 mcg Oral tab daily 6. Stool Softener 100 mg oral cap 1 cap once daily 7. Vitamin C 1,000 mg Oral tab daily 8. Calcium + Vitamin D 600 mg calcium- 200 unit Oral tab daily 9. multivitamin Oral tab daily 10. Fish Oil 1,000 mg Oral cap daily - PMHx: Hypercholesterolemia; Hypothyroidism; - PSHx: hand surgery; knee surgery; ectopic ; Carpal Tunnel Repair- Right; - Social history: Smoking status: Patient states was never smoker of tobacco. No barriers to communication noted, The patient speaks fluent Wolof. - Family history: Not pertinent. - : The pt / caregiver states he / she is not on anticoagulants. Home medication list is obtained from the patient. - Exposure Risk Screening:: None identified. Vital Signs: 11/05 20:42 BP 166 / 102; Pulse 99; Resp 18 S; Temp 98.3(O); Pulse Ox 99% on R/A; Weight 68.04 kg / gr2 150 lbs (R); Height 5 ft. 4 in. (162.56 cm) (R); Pain 3/10; 23:18 BP 132 / 76; Pulse 74; Resp 18; Temp 98.1(TE); Pulse Ox 98% on R/A; Pain 1/10; floyd 20:42 Body Mass Index 25.75 (68.04 kg, 162.56 cm) gr2 Procedures: 22:15 Laceration repair:. cs11 Laceration: 22:15 Wound Repair of 1.0cm ( 0.4in ) full thickness laceration to scalp. Distal cs11 neuro/vascular/tendon intact. Anesthesia: Local anesthetic administered with 2.0 mls of 1% lidocaine w/ Epi. Wound prep: Moderate cleansing with betadine by provider. Skin closed with 2 thin layer Prolene using Staple gun. Patient tolerated well. MDM: 21:54 CT Head Without Contrast Ordered. EDMS 21:55 CT Spine,Cervical W/o Contrast Ordered. EDMS 22:30 Financial registration complete. gb 22:42 [facility] Payment Agreement was scanned into [employer] and attached to record. gb 23:13 Tetanus- Diptheria-Acellular Pertussis 0.5 ml IM once; Routine booster 10-64yrs, >64 cs11 with child contact [employer] ordered. 11/06 12:35 T-Sheet-- Draft Copy was scanned into [employer] and attached to record. gb Administered Medications: 11/05 23:32 Drug: Tetanus- Diptheria-Acellular Pertussis 0.5 ml [diphth,pertussis(acel),tetanus 2.5 ko2 Lf unit-8 mcg-5 Lf/0.5mL IM syringe (0.5 mL)] {Combination Saw Operator: [employer]. Exp: 12/22/2018. Lot #: [id number]. } Route: IM; Site: right deltoid; Addendum: 11/08/2016 17:48 Radiology Callback: Radiology results faxed to primary care physician/provider. dr prince gutierrez faxed formal repiort of ct c spine for fu mlg. Signatures: Dispatcher [employer] EDSD Rosa Lee MD MD ml Peters, Mary RN RN Ceci Arroyo, Reg Reg Devonte Gar DO DO cs11 Keara Eagle RN RN ko2 The chart was reviewed and I authenticate all verbal orders and agree with the evaluation and treatment provided.Attachments: 11/05 22:42 [place] [place] Payment Agreement gb 11/06 12:35 T-Sheet-- Draft Copy gb MTDD
--- NOTE | 2016-11-08 17:51 | EDDOCDS ---
Physician Documentation [facility] Name: Evy Robertson Age: 66 yrs Sex: Female : 1950 Arrival Date: 11/05/2016 Time: 20:40 Bed 9 Private MD: Christian Gutierrez M.D. Disposition: 11/05/16 23:15 Discharged to Home/Self Care. Impression: Laceration without foreign body of scalp. - Condition is Stable. - Medication Reconciliation, Local Pharmacy Hours form. - Follow up: Christian Gutierrez; When: 1 week; Reason: Staple/Suture removal. - Problem is new. - Symptoms have improved. Historical: - Allergies: PENICILLINS; - Home Meds: 1. levothyroxine 75 mcg Oral cap 1 cap once daily 2. simvastatin 80 mg Oral tab daily 3. fenofibrate 160 mg oral tab 1 tab once daily 4. Sertraline 50 mg daily 5. Vitamin B-12 1,000 mcg Oral tab daily 6. Stool Softener 100 mg oral cap 1 cap once daily 7. Vitamin C 1,000 mg Oral tab daily 8. Calcium + Vitamin D 600 mg calcium- 200 unit Oral tab daily 9. multivitamin Oral tab daily 10. Fish Oil 1,000 mg Oral cap daily - PMHx: Hypercholesterolemia; Hypothyroidism; - PSHx: hand surgery; knee surgery; ectopic ; Carpal Tunnel Repair- Right; - Social history: Smoking status: Patient states was never smoker of tobacco. No barriers to communication noted, The patient speaks fluent Arabic. - Family history: Not pertinent. - : The pt / caregiver states he / she is not on anticoagulants. Home medication list is obtained from the patient. - Exposure Risk Screening:: None identified. Vital Signs: 11/05 20:42 BP 166 / 102; Pulse 99; Resp 18 S; Temp 98.3(O); Pulse Ox 99% on R/A; Weight 68.04 kg / gr2 150 lbs (R); Height 5 ft. 4 in. (162.56 cm) (R); Pain 3/10; 23:18 BP 132 / 76; Pulse 74; Resp 18; Temp 98.1(TE); Pulse Ox 98% on R/A; Pain 1/10; floyd 20:42 Body Mass Index 25.75 (68.04 kg, 162.56 cm) gr2 Procedures: 22:15 Laceration repair:. cs11 Laceration: 22:15 Wound Repair of 1.0cm ( 0.4in ) full thickness laceration to scalp. Distal cs11 neuro/vascular/tendon intact. Anesthesia: Local anesthetic administered with 2.0 mls of 1% lidocaine w/ Epi. Wound prep: Moderate cleansing with betadine by provider. Skin closed with 2 thin layer Prolene using Staple gun. Patient tolerated well. MDM: 21:54 CT Head Without Contrast Ordered. EDMS 21:55 CT Spine,Cervical W/o Contrast Ordered. EDMS 22:30 Financial registration complete. gb 22:42 [facility] Payment Agreement was scanned into [employer] and attached to record. gb 23:13 Tetanus- Diptheria-Acellular Pertussis 0.5 ml IM once; Routine booster 10-64yrs, >64 cs11 with child contact [employer] ordered. 11/06 12:35 T-Sheet-- Draft Copy was scanned into [employer] and attached to record. gb Administered Medications: 11/05 23:32 Drug: Tetanus- Diptheria-Acellular Pertussis 0.5 ml [diphth,pertussis(acel),tetanus 2.5 ko2 Lf unit-8 mcg-5 Lf/0.5mL IM syringe (0.5 mL)] {Biomedical Technician: [employer]. Exp: 12/22/2018. Lot #: [id number]. } Route: IM; Site: right deltoid; Addendum: 11/08/2016 17:48 Radiology Callback: Radiology results faxed to primary care physician/provider. dr prince gutierrez faxed formal repiort of ct c spine for fu mlg. Signatures: Dispatcher [employer] EDFL Rosa Lee MD MD ml Peters, Mary RN RN Ceci Arroyo, Reg Reg Devonte Gar DO DO cs11 Keara Eagle RN RN ko2 The chart was reviewed and I authenticate all verbal orders and agree with the evaluation and treatment provided.Attachments: 11/05 22:42 [facility] [place] Agreement gb 11/06 12:35 T-Sheet-- Draft Copy gb Chart Complete MTDD
--- NOTE | 2016-11-08 17:51 | EDDOCDS ---
Physician Documentation [facility] Name: Evy Robertson Age: 66 yrs Sex: Female : 1950 Arrival Date: 11/05/2016 Time: 20:40 Bed 9 Private MD: Christian Gutierrez M.D. Disposition: 11/05/16 23:15 Discharged to Home/Self Care. Impression: Laceration without foreign body of scalp. - Condition is Stable. - Medication Reconciliation, Local Pharmacy Hours form. - Follow up: Christian Gutierrez; When: 1 week; Reason: Staple/Suture removal. - Problem is new. - Symptoms have improved. Historical: - Allergies: PENICILLINS; - Home Meds: 1. levothyroxine 75 mcg Oral cap 1 cap once daily 2. simvastatin 80 mg Oral tab daily 3. fenofibrate 160 mg oral tab 1 tab once daily 4. Sertraline 50 mg daily 5. Vitamin B-12 1,000 mcg Oral tab daily 6. Stool Softener 100 mg oral cap 1 cap once daily 7. Vitamin C 1,000 mg Oral tab daily 8. Calcium + Vitamin D 600 mg calcium- 200 unit Oral tab daily 9. multivitamin Oral tab daily 10. Fish Oil 1,000 mg Oral cap daily - PMHx: Hypercholesterolemia; Hypothyroidism; - PSHx: hand surgery; knee surgery; ectopic ; Carpal Tunnel Repair- Right; - Social history: Smoking status: Patient states was never smoker of tobacco. No barriers to communication noted, The patient speaks fluent Yi. - Family history: Not pertinent. - : The pt / caregiver states he / she is not on anticoagulants. Home medication list is obtained from the patient. - Exposure Risk Screening:: None identified. Vital Signs: 11/05 20:42 BP 166 / 102; Pulse 99; Resp 18 S; Temp 98.3(O); Pulse Ox 99% on R/A; Weight 68.04 kg / gr2 150 lbs (R); Height 5 ft. 4 in. (162.56 cm) (R); Pain 3/10; 23:18 BP 132 / 76; Pulse 74; Resp 18; Temp 98.1(TE); Pulse Ox 98% on R/A; Pain 1/10; floyd 20:42 Body Mass Index 25.75 (68.04 kg, 162.56 cm) gr2 Procedures: 22:15 Laceration repair:. cs11 Laceration: 22:15 Wound Repair of 1.0cm ( 0.4in ) full thickness laceration to scalp. Distal cs11 neuro/vascular/tendon intact. Anesthesia: Local anesthetic administered with 2.0 mls of 1% lidocaine w/ Epi. Wound prep: Moderate cleansing with betadine by provider. Skin closed with 2 thin layer Prolene using Staple gun. Patient tolerated well. MDM: 21:54 CT Head Without Contrast Ordered. EDMS 21:55 CT Spine,Cervical W/o Contrast Ordered. EDMS 22:30 Financial registration complete. gb 22:42 [facility] Payment Agreement was scanned into [employer] and attached to record. gb 23:13 Tetanus- Diptheria-Acellular Pertussis 0.5 ml IM once; Routine booster 10-64yrs, >64 cs11 with child contact [employer] ordered. 11/06 12:35 T-Sheet-- Draft Copy was scanned into [employer] and attached to record. gb Administered Medications: 11/05 23:32 Drug: Tetanus- Diptheria-Acellular Pertussis 0.5 ml [diphth,pertussis(acel),tetanus 2.5 ko2 Lf unit-8 mcg-5 Lf/0.5mL IM syringe (0.5 mL)] {Vp Delivery: [employer]. Exp: 12/22/2018. Lot #: [id number]. } Route: IM; Site: right deltoid; Addendum: 11/08/2016 17:48 Radiology Callback: Radiology results faxed to primary care physician/provider. dr prince gutierrez faxed formal repiort of ct c spine for fu mlg. Signatures: Dispatcher [employer] EDUT Rosa Lee MD MD ml Peters, Mary RN RN Ceci Arroyo, Reg Reg Devonte Gar DO DO cs11 Keara Eagle RN RN ko2 The chart was reviewed and I authenticate all verbal orders and agree with the evaluation and treatment provided.Attachments: 11/05 22:42 [place] [place] Agreement gb 11/06 12:35 T-Sheet-- Draft Copy gb Chart Complete MTDD
--- NOTE | 2016-11-08 17:52 | EDDOCDS ---
Nurse's Notes [facility] Name: Evy Robertson Age: 66 yrs Sex: Female : 1950 Arrival Date: 11/05/2016 Time: 20:40 Bed 9 Private MD: Christian Gutierrez M.D. Diagnosis: Laceration without foreign body of scalp Presentation: 11/05 20:44 Presenting complaint: Patient states: Slipped and fell hitting back of head. Denies mcp being on any blood thinners. Adult Sepsis Screening: The patient does not have new or worsening altered mentation. Patient's respiratory rate is less than 22. Systolic blood pressure is greater than 100. Patient has a qSOFA score of 0- Negative Sepsis Screen. Suicide/Homicide risk assessment- the patient denies having any suicidal and/or homicidal ideations and does not present with any other emotional, behavioral or mental health complaints. Status: Patient is not a manager support services or dependent. Transition of care: patient was not received from another setting of care. 20:44 Acuity: WINNIE Level 4 [facility] 20:44 Method Of Arrival: Walkin/Carried/Asstd [facility] Triage Assessment: 20:48 General: Appears uncomfortable, Behavior is cooperative. Pain: Location: back of head [facility] Pain currently is 4 out of 10 on a pain scale. Neurological: Level of Consciousness is awake, alert, Oriented to person, place, time, Moves all extremities. Gait is steady, Speech is normal. Respiratory: Airway is patent Respiratory effort is even, unlabored. Derm: Skin is pink, warm & dry. Musculoskeletal: Circulation, motion, and sensation intact. Injury Description: Laceration sustained to back of head is clean, 0.5 to 2.5 cm long, bleeding moderately. Historical: - Allergies: PENICILLINS; - Home Meds: 1. levothyroxine 75 mcg Oral cap 1 cap once daily 2. simvastatin 80 mg Oral tab daily 3. fenofibrate 160 mg oral tab 1 tab once daily 4. Sertraline 50 mg daily 5. Vitamin B-12 1,000 mcg Oral tab daily 6. Stool Softener 100 mg oral cap 1 cap once daily 7. Vitamin C 1,000 mg Oral tab daily 8. Calcium + Vitamin D 600 mg calcium- 200 unit Oral tab daily 9. multivitamin Oral tab daily 10. Fish Oil 1,000 mg Oral cap daily - PMHx: Hypercholesterolemia; Hypothyroidism; - PSHx: hand surgery; knee surgery; ectopic ; Carpal Tunnel Repair- Right; - Social history: Smoking status: Patient states was never smoker of tobacco. No barriers to communication noted, The patient speaks fluent Maori. - Family history: Not pertinent. - : The pt / caregiver states he / she is not on anticoagulants. Home medication list is obtained from the patient. - Exposure Risk Screening:: None identified. Screenin:17 Screening information is obtained from the patient. Fall risk: No risks identified. ko2 Assistance ADL's: requires no assistance with activities of daily living. Abuse/DV Screen: The patient / caregiver reports he/she is: There is an injury present, The injury is consistent with the stated history. Nutritional screening: No deficits noted. Advance Directives: Currently, there is no health care proxy. There is no active DNR order. There is no living will. There is no Power of Water Taxi Operator. home support is adequate. Assessment: 22:00 General: Appears in no apparent distress, Behavior is appropriate for age, cooperative. ko2 Pain: Location: back of head Pain currently is 4 out of 10 on a pain scale. Neurological: Level of Consciousness is awake, alert. Respiratory: Airway is patent Respiratory effort is even, unlabored. Derm: laceration to back of head. bleeding slightly. 22:00 Musculoskeletal: Range of motion intact in all extremities. ko2 23:00 General: Appears in no apparent distress, Behavior is appropriate for age, cooperative. ko2 Pain: Location: back of head. Neurological: Level of Consciousness is awake, alert. Respiratory: Airway is patent Respiratory effort is even, unlabored. Derm: Bleeding stopped. [place] in place. Vital Signs: 20:42 BP 166 / 102; Pulse 99; Resp 18 S; Temp 98.3(O); Pulse Ox 99% on R/A; Weight 68.04 kg gr2 (R); Height 5 ft. 4 in. (162.56 cm) (R); Pain 3/10; 23:18 BP 132 / 76; Pulse 74; Resp 18; Temp 98.1(TE); Pulse Ox 98% on R/A; Pain 1/10; floyd 20:42 Body Mass Index 25.75 (68.04 kg, 162.56 cm) gr2 Vitals: 20:42 Log In Time: November 05, 2016 at 20:42. gr2 ED Course: 20:42 Patient visited by Edel Sanchez. gr2 20:42 Christian Gutierrez is Private Physician. gr2 20:42 Patient moved to Waiting gr2 20:43 Patient visited by Edel Sanchez. gr2 20:43 Patient moved to Pre RCE gr2 20:45 Triage Initiated mcp 20:51 Patient visited by Tea Delgadillo RN. mcp 21:51 Keara Eagle,NAGI is Primary Nurse. cz 21:51 Patient moved to 9 cz 21:52 Devonte Elizabeth DO is Attending Physician. cs11 21:52 Patient visited by Devonte Elizabeth DO. cs11 22:18 The patient / caregiver is instructed regarding the plan of care and ED course. ko2 22:42 [facility] Payment Agreement was scanned into [employer] and attached to record. gb 22:47 Patient visited by Keara Eagle RN. ko2 22:59 CT Head Without Contrast Returned. EDMS 22:59 CT Spine,Cervical W/o Contrast Returned. EDMS 23:14 Christian Gutierrez is Referral Physician. cs11 23:18 Patient visited by Emily Torrez PCA. floyd 23:33 No IV's were initiated during this patient's visit. No procedures done that require ko2 assistance. 11/06 12:35 T-Sheet-- Draft Copy was scanned into [employer] and attached to record. gb Administered Medications: 11/05 23:32 Drug: Tetanus- Diptheria-Acellular Pertussis 0.5 ml [diphth,pertussis(acel),tetanus 2.5 ko2 Lf unit-8 mcg-5 Lf/0.5mL IM syringe (0.5 mL)] {Dietitian Consultant: [employer]. Exp: 12/22/2018. Lot #: [id number]. } Route: IM; Site: right deltoid; Order Results: Radiology Order: CT Head Without Contrast Test: CT Head Without Contrast REASON FOR EXAMINATION: Trauma; ; CT of the head; Clinical history: Headache. Trauma.; Technique: Multiple axial CT images were obtained through the head without administration of contrast; .; Findings: The ventricles and sulci are symmetric bilaterally. There is no evidence of acute hemorrhag; e or infarct. There is no midline shift, mass effect, or extra-axial fluid collection. The osseous st; ructures are unremarkable. There is a small air fluid level in the left maxillary sinus. The other vi; sualized paranasal sinuses and mastoid air cells are clear.; Impression: No acute intracranial hemorrhage or infarct. Small air fluid level in the left maxillary; sinus.; ; Radiology Order: CT Spine,Cervical W/o Contrast Test: CT Spine,Cervical W/o Contrast REASON FOR EXAMINATION: Trauma; ; CT of the cervical spine; Clinical history: Pain. Trauma.; Technique: Multiple axial CT images were obtained through the cervical spine without administration o; f contrast. Coronal and sagittal 3-D reconstructed images were also obtained.; Comparison: None.; Findings:; The cervical vertebral bodies are in satisfactory position. However, there is a 3 mm anterior spondyl; olisthesis of C4 upon C5. No fractures or dislocations are demonstrated. The odontoid process is inta; ct. Intervertebral disc spaces are moderately narrowed at C5/C6 and C/C7. Disc osteophyte complexes a; nd disc bulges are noted at these levels. This results in borderline central canal stenosis measuring; approximate 9 mm in AP diameter at each of these levels. There is also moderate bilateral neural for; aminal narrowing. Moderate facet arthropathy with sclerosis and osteophytes are seen bilaterally. The; re is no evidence of facet subluxation. The cervical cranial junction is intact. The surrounding soft; tissues are within normal limits.; Impression:; 1. No acute fracture.; 2. Moderately severe degenerative disc disease with disc osteophyte complexes and disc bulges at C5/C; 6 and C6/C7. This results in borderline central canal stenosis and moderate bilateral neural foramina; l narrowing at these levels.; 3. Grade 1 anterior spondylolisthesis of C4 upon C5.; ; Outcome: 23:15 Discharge ordered by Provider. cs11 23:33 Discharge Assessment: Patient awake, alert and oriented x 3. No cognitive and/or ko2 functional deficits noted. Patient verbalized understanding of disposition instructions. patient administered narcotics - no. The following High Risk Discharge criteria are identified: None. Condition: stable. Discharge instructions given to patient, Instructed on discharge instructions, follow up and referral plans. Demonstrated understanding of instructions, Pt was receptive of discharge instructions/ teaching. CT Study completed. Property sent home with patient. 23:33 Patient left the ED. ko2 Signatures: Dispatcher [employer] EDTea Young, RN RN Alcon Puentes, RN RN Ceci Benjamin, Reg Reg gb Lore, Emily, LATCHER LATCHER Devonte Tran, DO cs11 Edel Sanchez gr2 Keara Eagle RN RN ko2 Chart Complete MTDD
== END 2016-11-05 23:33 | disposition home or self-care (01) ==
LOC: M ED 20:40
DX: S01.01XA Laceration without foreign body of scalp, initial encounter (principal); W00.0XXA Fall on same level due to ice and snow, initial encounter; Y92.410 Unspecified street and highway as the place of occurrence of the external cause; Y93.89 Activity, other specified; Y99.8 Other external cause status; E03.9 Hypothyroidism, unspecified; E78.00 Pure hypercholesterolemia, unspecified; Z79.899 Other long term (current) drug therapy; Z79.52 Long term (current) use of systemic steroids; Z88.0 Allergy status to penicillin

== ENCOUNTER → 2017-05-05 | Outpatient (CLI) | payer MEDICARE ==
--- NOTE | 2017-05-05 21:54 | REP ---
BILATERAL DIGITAL SCREENING MAMMOGRAM: 05/05/2017. Clinical history: Screening examination. She has no current complaints or personal history of breast cancer with a family history of breast cancer in a maternal half-sister. Comparison: 04/01/2016, 02/27/2015, 12/31/2013, 10/25/2012. Findings: There are some scattered heterogeneously dense breast parenchyma in a pattern and distribution, unchanged from multiple prior studies. Large coarse calcifications are present, of no clinical significance. Scattered lymph nodes are seen in the axilla. There is some nodular tissue asymmetry in the axillary tail of the left breast, unchanged from multiple prior studies in the lower half of the right breast and left breast at about the 6 o'clock position. In the outer half of the left breast, there is a subtle grouping of microcalcifications with irregular forms. These are only clearly identified on the CC view. There are no other findings. Impression: 1. BIRADS ACR category 0, incomplete, needs additional imaging evaluation. Spot magnified CC view, a true ML and other images, as deemed necessary by the reviewing radiologist at the time of her diagnostic mammogram should be performed to evaluate this group of microcalcifications in the outer half left breast. It could be parenchymal or in the skin. I favor the former because of the multiple shapes. BI-RADS/ACR category 0 mammogram. Incomplete. Additional imaging and/or prior images are needed before a final assessment can be assigned. This mammogram was interpreted with the aid of an FDA-approved computer-aided detection system. A. Negative x-ray reports should not delay biopsy if a dominant or clinically suspicious mass is present. B. Four to eight percent of cancers are not identified by x-ray. C. Adenosis and dense breasts may obscure an underlying neoplasm The patient states she/he has not had a clinical breast exam in over a year. The patient letter being requested is M0. (Dense).
== END ==
LOC: M WHC 14:43
PROVIDERS: ATTEND Family Medicine
DX: R92.8 Other abnormal and inconclusive findings on diagnostic imaging of breast (principal); Z80.3 Family history of malignant neoplasm of breast
CPT/HCPCS: G0202; G0463

== ENCOUNTER → 2017-05-10 | Outpatient (CLI) | payer MEDICARE ==
--- NOTE | 2017-05-11 10:58 | REP ---
DIAGNOSTIC MAMMOGRAM LEFT BREAST: Diagnostic mammogram left breast performed. Multiple magnification views are obtained. There do appear to be multiple clustered pleomorphic microcalcifications in the upper outer quadrant of the left breast. There appears to be a dominant cluster of multiple calcifications with a smaller cluster more posterolaterally. Recommend sampling with stereotactic biopsy. IMPRESSION: ACR 4 suspicious. Clustered microcalcifications in the upper outer quadrant of the left breast. Recommend stereotactic biopsy of at least the dominant larger cluster of microcalcifications. ACR 4 suspicious. BI-RADS/ACR category 4 mammogram. Suspicious abnormality - biopsy should be considered. Usually requires biopsy. This mammogram was interpreted with the aid of an FDA-approved computer-aided detection system. A. Negative x-ray reports should not delay biopsy if a dominant or clinically suspicious mass is present. B. Four to eight percent of cancers are not identified by x-ray. C. Adenosis and dense breasts may obscure an underlying neoplasm. The patient letter being requested is M4. Signed by Casey Jason MD 05/11/2017 01:31 P
== END ==
LOC: M RAD 12:36
PROVIDERS: ATTEND Family Medicine
DX: Z12.31 Encounter for screening mammogram for malignant neoplasm of breast (principal); R92.0 Mammographic microcalcification found on diagnostic imaging of breast

== ENCOUNTER → 2017-05-10 | Outpatient (CLI) | payer MEDICARE ==
--- NOTE | 2017-05-11 11:10 | DEXA ---
AP SPINE L1 - L4 1.066 -1.0 0.6 LT FEMUR TOTAL 0.789 -1.7 -0.5 RT FEMUR TOTAL 0.854 -1.2 0.0 TOTAL BODY TOTAL OTHER DUAL FEMUR FRAX* ASSESSMENT Risk factors: Not performed. 10 year probability of fracture Major osteoporotic fracture % Hip fracture % COMMENTS: There is low bone density of the spine and hips. The decreased density of the spine does represent a significant change. The decreased density of the left hip does represent a significant change. The decreased density of the right hip does represent a significant change. The density of the spine has decreased 12.6% since the initial exam on 2005. The spine density has decreased 5.8% since the most recent exam on 09/21/2011. The density of the left hip has decreased 23.4% since the initial exam on 2005. The density of the left hip has decreased 7.2% since the most recent exam on . The density of the right hip has decreased 17.5% the initial exam on 02/09/2006. The density of the right hip has decreased 7.3% since the most recent exam on . FOLLOW-UP: Recommendation for the next bone density exam: 2 years. KYLEIGH
== END ==
LOC: M WHC 10:20
PROVIDERS: ATTEND Family Medicine
DX: Z13.820 Encounter for screening for osteoporosis (principal); M81.0 Age-related osteoporosis without current pathological fracture; Z12.31 Encounter for screening mammogram for malignant neoplasm of breast; R92.0 Mammographic microcalcification found on diagnostic imaging of breast
CPT/HCPCS: 77080; G0206

== ENCOUNTER → 2017-06-02 | Outpatient (CLI) | payer MEDICARE ==
[~2017-06-02] MED LIST: LIDOCAINE 1% MDV 20ML VIAL As Ordered ONE
--- NOTE | 2017-06-02 18:03 | REP ---
Digital diagnostic unilateral left breast mammography with CAD: Two views. History: Marker clip placement mammography post stereotactic needle biopsy for microcalcifications. Comparison mammography May 10, 2017. Findings: CC and true MLO views demonstrate the marker clip in good position. No significant hematoma seen. Impression: Marker clip in good position. Signed by Papi Perez MD 06/06/2017 08:15 A
--- NOTE | 2017-06-02 18:04 | REP ---
Specimen radiography: Left breast. History: Stereotactic needle biopsy for microcalcifications. Comparison mammography 05/10/2017. Findings: Specimen radiography demonstrates microcalcifications from the target grouping in four of the removed specimens. Impression: Specimen radiography demonstrates microcalcifications from the target grouping. Signed by Papi Perez MD 06/08/2017 04:01 P
--- NOTE | 2017-06-06 16:44 | REP ---
STEREOTACTIC LEFT BREAST BIOPSY The procedure was performed under the direct supervision of Dr. Perez The patient has a history of clustered microcalcifications in the upper outer quadrant of the left breast seen on a previous mammogram dated 05/10/2017. The risks and benefits of the procedure were explained to the patient and informed consent was obtained. A craniocaudal approach was utilized. The calcifications were localized using stereotactic mammographic guidance. 1% Xylocaine was used as a local anesthetic. An 8 gauge, suction assisted Mammotome needle was inserted and 6 core biopsy samples were obtained. Specimen radiograph demonstrates the presence of calcifications to be within the specimen. A marker clip was placed at the biopsy site. The patient tolerated the procedure well and there were no immediate complications. After the appropriate amount of monitored convalescence, the patient was discharged from the department. Reviewed by ALEX Remy 06/06/2017 08:47 ASigned by Papi Perez MD 06/06/2017 04:36 P
== END ==
LOC: M RADPRO 10:33
PROVIDERS: ATTEND Surgery
DX: D24.2 Benign neoplasm of left breast (principal); Z88.0 Allergy status to penicillin; Z79.899 Other long term (current) drug therapy

== ENCOUNTER → 2018-05-11 | Outpatient (CLI) | payer MEDICARE | LOC: M WHC 09:38 | DX: Z12.31 Encounter for screening mammogram for malignant neoplasm of breast (principal); Z78.0 Asymptomatic menopausal state; Z92.89 Personal history of other medical treatment; Z80.3 Family history of malignant neoplasm of breast | CPT/HCPCS: 77067 ==

== ENCOUNTER → 2019-07-10 | Outpatient (CLI) | payer MEDICARE ==
--- NOTE | 2019-07-10 12:54 | REPMRS ---
Patient History The patient states she has not had a clinical breast exam in over a year. Family history of breast cancer at age 50 or over in maternal half sister. Benign radio exam breast specimen of the left breast, June 02, 2017. Benign stereotatic loc for ea lesion of the left breast, June 02, 2017. No Hormone Replacement Therapy 3D TOMOSYNTHESIS WAS PERFORMED. [facility] lifetime risk for breast cancer is 6.8%. Digital Woman Screen Mammo: July 10, 2019 - Exam #: [id number] Bilateral CC and MLO view(s) were taken. Technologist: Phyllis Carrillo, Technologist Prior study comparison: May 11, 2018, bilateral digital woman screen mammo performed at [facility]. May 10, 2017, left breast digital mammo diagnostic unilateral, performed at [facility]. FINDINGS: The breast tissue is heterogeneously dense. This may lower the sensitivity of mammography. There has been no change in the appearance of the mammogram from the prior studies. There is a moderate amount of residual fibroglandular tissue which is fairly symmetric. There is no interval development of dominant mass, areas of architectural distortion, or clustered microcalcification typical of malignancy. Assessment: BI-RADS/ACR category 1 mammogram. Negative Mammogram. Recommendation Routine screening mammogram in 1 year (for women over age 40). This mammogram was interpreted with the aid of an FDA-approved computer-aided dectection system. Electronically Signed By: Casey Jason MD 07/10/19 [id number]
== END ==
LOC: M WHC 11:12
PROVIDERS: ATTEND Family Medicine
DX: Z12.31 Encounter for screening mammogram for malignant neoplasm of breast (principal)

== ENCOUNTER → 2019-07-16 | Outpatient (REF) | payer MEDICARE | LOC: M LAB REF 16:39 | PROVIDERS: ATTEND Family Medicine | DX: Z01.89 Encounter for other specified special examinations (principal) ==

== ENCOUNTER → 2020-08-20 | Outpatient (CLI) | payer MEDICARE ==
--- NOTE | 2020-08-20 11:05 | REPMRS ---
Patient History The patient states she has not had a clinical breast exam in over a year. Family history of breast cancer at age 50 or over in maternal half sister. Benign radio exam breast specimen of the left breast, June 02, 2017. Benign stereotatic loc for ea lesion of the left breast, June 02, 2017. No Hormone Replacement Therapy 3D TOMOSYNTHESIS WAS PERFORMED. [facility] lifetime risk for breast cancer is 6.4%. Volpara breast density c. Digital Woman Screen Mammo: August 20, 2020 - Exam #: [id number] Bilateral CC and MLO view(s) were taken. Technologist: Alissa Dupree, RT Prior study comparison: July 10, 2019, bilateral digital woman screen mammo performed at [facility]. May 11, 2018, bilateral digital woman screen mammo performed at [facility]. FINDINGS: The breast tissue is heterogeneously dense. This may lower the sensitivity of mammography. There has been no change in the appearance of the mammogram from the prior studies. There is a moderate amount of residual fibroglandular tissue which is fairly symmetric. There is no interval development of dominant mass, areas of architectural distortion, or clustered microcalcification typical of malignancy. Assessment: BI-RADS/ACR category 1 mammogram. Negative Mammogram. Recommendation Routine screening mammogram in 1 year (for women over age 40). This mammogram was interpreted with the aid of an FDA-approved computer-aided dectection system. Electronically Signed By: Casey Jason MD 08/20/20 [id number]
== END ==
LOC: M WHC 09:18
PROVIDERS: ATTEND Family Medicine
DX: Z12.31 Encounter for screening mammogram for malignant neoplasm of breast (principal); Z86.018 Personal history of other benign neoplasm

== ENCOUNTER → 2020-10-16 | Outpatient (CLI) | payer SELFPAY | LOC: M LABSMTC 10:43 | PROVIDERS: ATTEND Pediatrics | DX: Z20.822 Contact with and (suspected) exposure to COVID-19 (principal) ==

== ENCOUNTER → 2021-01-15 | Outpatient (REF) | payer MEDICARE ==
[2021-01-15 18:52] LABS: TOTAL PROTEIN 7.2 GM/DL (6.4-8.2)
[2021-01-18 15:25] LABS: ALBUMIN % 62.2 % (55.8-66.1); ALPHA-1-GLOBULIN % 4.5 % (2.9-4.9); ALPHA-2-GLOBULINS % 8.8 % (7.1-11.8)
[2021-01-18 15:26] LABS: ALBUMIN 4.48 GM/DL (3.29-5.55); ALPHA-1-GLOBULINS 0.32 GM/DL (0.17-0.41); ALPHA-2-GLOBULINS 0.63 GM/DL (0.42-0.99); BETA-1-GLOBULINS 0.53 GM/DL (0.28-0.60); BETA-1-GLOBULINS % 7.3 % (4.7-7.2); BETA-2-GLOBULINS 0.32 GM/DL (0.19-0.55); BETA-2-GLOBULINS % 4.4 % (3.2-6.5); GAMMA GLOBULIN % 12.8 % (11.1-18.8); GAMMA GLOBULINS 0.92 GM/DL (0.65-1.58)
== END ==
LOC: M LAB REF 17:10
PROVIDERS: ATTEND Nurse Practitioner Family
DX: E83.52 Hypercalcemia (principal)

== ENCOUNTER → 2021-01-29 | Outpatient (CLI) | payer MEDICARE ==
--- NOTE | 2021-01-29 11:24 | REP ---
INDICATION: CKD STAGE 3A. COMPARISON: 05/27/2010. TECHNIQUE: Real-time sonographic evaluation of the kidneys is performed. FINDINGS: Renal cortical echogenicity pattern is slightly increased bilaterally and contours are smooth. There is no evidence of hydronephrosis, cyst, mass, or calculus in either kidney. The right kidney measures 11.8 x 4.8 x 4.6 cm. Left renal dimensions are 10.8 x 5.1 x 5.4 cm. The urinary bladder is unremarkable. IMPRESSION: Negative renal ultrasound. <Electronically signed by Casey Jason > 01/29/21 [id number]
== END ==
LOC: M RAD 10:27
PROVIDERS: ATTEND Nurse Practitioner Family
DX: N18.31 Chronic kidney disease, stage 3a (principal)

== ENCOUNTER → 2021-02-18 | Outpatient (CLI) | payer MEDICARE ==
[2021-02-18 17:11] LABS: PLATELET COUNT, AUTOMATED 387 10^3/uL (150-450)
[2021-02-18 17:25] LABS: INR 0.96
[2021-02-18 17:26] LABS: PARTIAL THROMBOPLASTIN TIME 28.3 SECONDS (24.2-38.5)
== END ==
LOC: M PLALAB 15:33
PROVIDERS: ATTEND Physical Medicine & Rehabilitation
DX: M48.061 Spinal stenosis, lumbar region without neurogenic claudication (principal); Z79.899 Other long term (current) drug therapy

== ENCOUNTER → 2021-04-29 | Outpatient (REF) | payer MEDICARE | LOC: M LAB REF 13:36 | PROVIDERS: ATTEND Nurse Practitioner Family | DX: E83.42 Hypomagnesemia (principal) ==

== ENCOUNTER 2021-09-10 11:35 | Outpatient (CLI) | payer MEDICARE ==
[~2021-09-10] VITALS: Ht 162.6 cm; Wt 65.0 kg
[~2021-09-10 11:35] MED LIST changes: +ACETAMINOPHEN TAB 650MG DOSE (2X325MG) PO ONE; +ALBUTEROL 90 MCG/ACT 8GM HFA INHALER INH PRN; +ALBUTEROL SULFATE 2.5 MG/0.5 ML INH NEB SOLN INH PRN; +CASIRIVIMAB/IMDEVIMAB 1,200 MG in NS 250 ML IV ONE; +EPINEPHrine INJ 1 MG/ML 1ML AMP IM PRN; -LIDOCAINE 1% MDV 20ML VIAL As Ordered ONE; +NS 1,000 ML IV SCH; +diphenhydrAMINE 50MG/ML VIAL (J1200) IV PRN; +methylPREDNISolone 125MG 2ML VIAL IV PRN
[2021-09-10 11:54] VITALS: BP 119/70
[2021-09-10 12:24] VITALS: BP 111/60
[2021-09-10 12:54] VITALS: BP 111/60
[2021-09-10 13:54] VITALS: BP 132/63
== END 2021-09-10 13:54 | disposition home or self-care (01) ==
LOC: M OPCLI4PR 11:35
PROVIDERS: ATTEND Family Medicine
DX: U07.1 COVID-19 (principal)

== ENCOUNTER → 2021-09-28 | Outpatient (CLI) | payer MEDICARE | LOC: M WHC 13:24 | PROVIDERS: ATTEND Family Medicine | DX: Z12.31 Encounter for screening mammogram for malignant neoplasm of breast (principal) ==

== ENCOUNTER → 2022-09-29 | Outpatient (CLI) | payer MEDICARE | LOC: M WHC 10:57 | PROVIDERS: ATTEND Family Medicine | DX: Z12.31 Encounter for screening mammogram for malignant neoplasm of breast (principal); Z13.820 Encounter for screening for osteoporosis ==

== ENCOUNTER → 2023-10-03 | Outpatient (CLI) | payer MEDICARE | LOC: M WHC 08:56 | PROVIDERS: ATTEND Family Medicine | DX: Z12.31 Encounter for screening mammogram for malignant neoplasm of breast (principal) ==

== ENCOUNTER → 2023-11-16 | Outpatient (REF) | payer MEDICARE ==
[2023-11-16 19:14] LABS: PERCENT SATURATION 23.3 % (13.2-45.0)
[2023-11-16 19:22] LABS: FERRITIN 99.2 NG/ML (7.3-270.7)
== END ==
LOC: M LAB REF 18:20
PROVIDERS: ATTEND Family Medicine
DX: D64.9 Anemia, unspecified (principal)

== ENCOUNTER → 2023-12-01 | Outpatient (REF) | payer MEDICARE ==
[2023-12-01 14:28] LABS: APPEARANCE, URINE HAZY (CLEAR); BACTERIA, URINE AUTO NEGATIVE (NEGATIVE); BILIRUBIN, URINE AUTO NEGATIVE (NEGATIVE); BLOOD, URINE BLOOD NEGATIVE (NEGATIVE); COLOR, URINE YELLOW (YELLOW); GLUCOSE, URINE (UA) AUTO NEGATIVE (NEGATIVE); KETONE, URINE AUTO NEGATIVE (NEGATIVE); LEUKOCYTE ESTERASE, URINE AUTO 2+ (NEGATIVE); MUCUS, URINE SMALL (NEGATIVE); NITRITE, URINE AUTO NEGATIVE (NEGATIVE); PROTEIN, URINE AUTO NEGATIVE (NEGATIVE); RBC, URINE AUTO 0 /HPF (0-3); SPECIFIC GRAVITY URINE AUTO 1.024 (1.002-1.035); SQUAMOUS EPITHELIAL CELL UR AU 4 /HPF (0-6); WBC, URINE AUTO 2 /HPF (0-3)
[2023-12-01 14:29] LABS: INR 1.03; PARTIAL THROMBOPLASTIN TIME 28.5 SECONDS (24.8-34.2); PROTHROMBIN TIME 13.2 SECONDS (12.5-14.5)
== END ==
LOC: M LAB REF 12:36
PROVIDERS: ATTEND Family Medicine
DX: Z01.818 Encounter for other preprocedural examination (principal)

== ENCOUNTER → 2024-01-24 | Outpatient (REF) | payer MEDICARE ==
[2024-01-24 17:53] LABS: PERCENT SATURATION 36.3 % (13.2-45.0)
== END ==
LOC: M LAB REF 16:45
PROVIDERS: ATTEND Family Medicine
DX: Z01.812 Encounter for preprocedural laboratory examination (principal); D63.8 Anemia in other chronic diseases classified elsewhere

== ENCOUNTER 2024-05-23 12:28 | Day surgery (SDC) | payer MEDICARE ==
[~2024-05-23] VITALS: Ht 157.5 cm; Wt 68.8 kg
[~2024-05-23 12:28] MED LIST changes: -ACETAMINOPHEN TAB 650MG DOSE (2X325MG) PO ONE; -ALBUTEROL 90 MCG/ACT 8GM HFA INHALER INH PRN; -ALBUTEROL SULFATE 2.5 MG/0.5 ML INH NEB SOLN INH PRN; +B COCAP4 PO; -CASIRIVIMAB/IMDEVIMAB 1,200 MG in NS 250 ML IV ONE; -EPINEPHrine INJ 1 MG/ML 1ML AMP IM PRN; +IRON65TA2 PO; +LEVO75TA4 PO; -NS 1,000 ML IV SCH; +OMEG10002 PO; +SERT50TA29 PO; +SIMV-254 PO; +SYST1SOL4 OP; +VALA-3 PO; -diphenhydrAMINE 50MG/ML VIAL (J1200) IV PRN; -methylPREDNISolone 125MG 2ML VIAL IV PRN
[2024-05-23] MEDS ORDERED: propofoL 200 MG/20 ML VIAL As Ordered ONE (12:57)
[2024-05-23] MEDS ORDERED: LIDOCAINE 2% 100MG/5ML SDV (FOR ANES.) As Ordered ONE (12:57)
[2024-05-23] MEDS: NS 1,000 ML IV ONE (13:09)
[2024-05-23 14:05] VITALS: BP 132/68; TEMP 97.3; O2SAT 96
== END 2024-05-23 14:20 | disposition home or self-care (01) ==
LOC: M OPP 12:28
PROVIDERS: ATTEND Surgery
DX: Z12.11 Encounter for screening for malignant neoplasm of colon (principal); Z79.02 Long term (current) use of antithrombotics/antiplatelets; Z79.890 Hormone replacement therapy; Z79.899 Other long term (current) drug therapy; Z88.0 Allergy status to penicillin

== ENCOUNTER → 2024-09-09 | Outpatient (CLI) | payer MEDICARE | LOC: M WHC 12:49 | PROVIDERS: ATTEND Family Medicine | DX: N63.41 Unspecified lump in right breast, subareolar (principal); R92.8 Other abnormal and inconclusive findings on diagnostic imaging of breast; R92.333 Mammographic heterogeneous density, bilateral breasts | CPT/HCPCS: 76642; 77066; G0279 ==

== ENCOUNTER → 2024-09-19 | Outpatient (CLI) | payer MEDICARE ==
[2024-09-19 14:40] VITALS: TEMP 98.5
[2024-09-19 14:54] VITALS: BP 134/88; O2SAT 100
== END ==
LOC: M WHCPRO 09:00
PROVIDERS: ATTEND Family Medicine
DX: R92.8 Other abnormal and inconclusive findings on diagnostic imaging of breast (principal); N63.15 Unspecified lump in the right breast, overlapping quadrants; C50.111 Malignant neoplasm of central portion of right female breast

== ENCOUNTER → 2024-12-24 | Outpatient (CLI) | payer MEDICARE | LOC: M WHC 12:35 | PROVIDERS: ATTEND Internal Medicine Hematology & Oncology | DX: N95.1 Menopausal and female climacteric states (principal) ==

== ENCOUNTER → 2025-01-24 | Outpatient (REF) | payer MEDICARE | LOC: M LAB REF 12:16 | PROVIDERS: ATTEND Physician Assistant | DX: B34.9 Viral infection, unspecified (principal) ==